=== PATIENT | female | born 1975 | race Caucasian/White ===

== ENCOUNTER 2018-11-04 14:24 | Emergency (ER) | payer SELFPAY ==
[~2018-11-04] VITALS: Ht 162.6 cm; Wt 90.9 kg
[2018-11-04 14:35] VITALS: BP 179/89; TEMP 99.8
[2018-11-04] MEDS ORDERED: GLUCOPHAGE500 MG/TAB PO (14:44)
[2018-11-04] MEDS ORDERED: SYNTHROID0.075 MG/T PO (14:45)
[2018-11-04] MEDS ORDERED: NORCO 325 MG-51 TAB PO (15:47)
[2018-11-04 16:10] VITALS: PULSE 90
== END 2018-11-04 16:33 | disposition home or self-care (01) ==
LOC: COL.ER 14:24
DX: S52.502A Unspecified fracture of the lower end of left radius, initial encounter for closed fracture (principal); E11.9 Type 2 diabetes mellitus without complications; Z90.49 Acquired absence of other specified parts of digestive tract; Z79.84 Long term (current) use of oral hypoglycemic drugs; W01.0XXA Fall on same level from slipping, tripping and stumbling without subsequent striking against object, initial encounter
CPT/HCPCS: Q4050